=== PATIENT | female | born 1975 | race African-American/Black ===

== ENCOUNTER → 2017-01-22 | Outpatient (CLI) | payer OTHER ==
--- NOTE | ~2017-01-22 | EKG ---
[place] [address] [facility] [place] [address] ELECTROCARDIOGRAM REPORT Name: ANDRES BARRY [id number]: 01/22/17 Attend Phys: Mychal Bajwa MD, F Discharge: Date of : 73 Report #: [id number] THIS REPORT FOR: //name// [facility] Test Date: 2017-01-22 Test Time: 13:39:58 Pat Name: ANDRES BARRY Department: Room: Gender: F [employer]visor [employer]: dario : 1975 Requested By: Mychal Bajwa Order Number: [id number] MD: Kalyan Finley Measurements Intervals [place] Rate: 70 P: 51 WV: 212 QRS: 37 QRSD: 85 T: 42 QT: 424 QTc: 458 Interpretive Statements Sinus rhythm Ventricular premature complex Prolonged [place] interval No previous ECG available for comparison Electronically Signed On 01-23-2017 8:57:49 CDT by Kalyan Finley [email or web address] <ELECTRONICALLY SIGNED> By: Kalyan Finley MD, [facility] 01/23/17 [id number] Kalyan Finley MD, FACC /EPI
[2017-01-22 13:30] LABS: ABSOLUTE NEUTROPHILS 3.9 thou/uL (1.4-8.2); BASOPHILS 0.8 % (0.0-2.0); EOSINOPHILS 3.7 % (0.0-3.0); HEMATOCRIT 40.9 % (37.0-47.0); HEMOGLOBIN 13.5 gm/dL (12.0-15.0); LYMPHOCYTES 41.5 % (24.0-44.0); MCH 28.3 pg (26.0-34.0); MCV 85.9 fL (80.0-100.0); MONOCYTES 7.8 % (1.0-8.0); PLATELET COUNT 302 thou/uL (150-400); POLYS 46.2 % (36.0-66.0); RBC 4.77 mil/uL (4.20-5.00); RDW 14.2 % (10.5-14.5); WBC 8.4 thou/uL (4.0-11.0)
[2017-01-22 13:31] LABS: MANUAL DIFF NO
[2017-01-22 13:52] LABS: ANION GAP 6 mmol/L (7-16); BUN 10 mg/dL (7-18); CALCIUM 8.4 mg/dL (8.5-10.1); CHLORIDE 106 mmol/L (98-107); CO2 28 mmol/L (21-32); CREATININE 0.8 mg/dL (0.6-1.0); GLUCOSE 82 mg/dL (74-106); POTASSIUM 4.2 mmol/L (3.5-5.1); SODIUM 140 mmol/L (136-145)
[2017-01-22 13:55] LABS: ALBUMIN 3.3 g/dL (3.4-5.0); ALKALINE PHOSPHATASE 73 U/L (46-116); CHOLESTEROL 156 mg/dL (<200); HDL CHOLESTEROL 29 mg/dL (>40); LDL CHOLESTEROL 108 mg/dL (<100); SGOT 16 U/L (15-37); SGPT 17 U/L (30-65); TC:HDL 5.4 Ratio (Not establshd); TOTAL BILIRUBIN 0.3 mg/dL (<0.1-1.0); TOTAL PROTEIN 8.1 g/dL (6.4-8.2); TRIGLYCERIDE 95 mg/dL (<150); VLDL 19 mg/dL (<40)
== END ==
LOC: LAB 12:44
PROVIDERS: Surgery
DX: E66.01 Morbid (severe) obesity due to excess calories (principal)

== ENCOUNTER → 2017-05-28 | Outpatient (CLI) | payer OTHER | LOC: CV 10:44 | DX: Z01.818 Encounter for other preprocedural examination (principal); E66.01 Morbid (severe) obesity due to excess calories ==